=== PATIENT | female | born 1995 | race Caucasian/White ===

== ENCOUNTER 2022-10-07 17:58 | Emergency (ER) | payer BC ==
[~2022-10-07] VITALS: Ht 167.6 cm; Wt 59.1 kg
[2022-10-07] MEDS ORDERED: CIPRO 500MG TA500 MG PO (20:08)
[2022-10-07] MEDS ORDERED: FLAGYL500 MG PO (20:08)
[2022-10-07 21:50] VITALS: BP 117/76; PULSE 87; TEMP 98.7
== END 2022-10-07 22:10 | disposition home or self-care (01) ==
LOC: COL.ER 17:58
DX: S61.032A Puncture wound without foreign body of left thumb without damage to nail, initial encounter (principal); L03.114 Cellulitis of left upper limb; Z28.311 Partially vaccinated for COVID-19; W55.01XA Bitten by cat, initial encounter
CPT/HCPCS: J0744